=== PATIENT | female | born 1985 | race Caucasian/White ===

== ENCOUNTER 2016-09-25 06:19 | Emergency (ER) | payer OTHER ==
[~2016-09-25] VITALS: Ht 154.9 cm; Wt 99.8 kg
[2016-09-25 06:19] VITALS: BP 124/76
[~2016-09-25 06:19] MED LIST: AMOXIL500 M1 PO; AMOXIL500 MG PO; ANAPROX DS550 MG PO; ATIVAN1 MG PO; AUGMENTIN 875 M1 TAB PO; BACTROBAN OINT22 GM PO; CIPROFLOXACIN500 MG PO; CLARITIN10 MG PO; CORT DOME 0.5%30 GM PO; FLONASE0.05 MG/AC NS; IBUPROFEN 30 M800 MG PO; KEFLEX500 MG PO; KWELL TP; LAMICTAL1 TAB PO; LAMICTAL200 MG PO; MACRODANTIN100 MG PO; MOTRIN800 MG PO; NEURONTIN300 MG PO; SEPTRA DS 800 M1 TAB PO; SUDAFED60 M1 PO; TRAMADOL HCL50 MG PO; ULTRAM50 MG PO; VIBRAMYCIN100 MG PO; VICODIN ES 7501 TAB PO; WYMOX500 MG PO; ZANTAC150 MG PO; ZOFRAN4 MG PO; ZYRTEC10 M2 PO; Zofran4 MG PO
[2016-09-25] MEDS ORDERED: KLONOPIN1 M1 PO (06:30)
[2016-09-25] MEDS ORDERED: EFFEXOR XR75 MG PO (06:30)
[2016-09-25] MEDS ORDERED: NEURONTIN600 MG PO (06:31)
== END 2016-09-25 09:21 | disposition home or self-care (01) ==
LOC: ED 06:19
DX: S70.12XA Contusion of left thigh, initial encounter (principal); S70.11XA Contusion of right thigh, initial encounter; R51 Headache; M54.2 Cervicalgia; J34.89 Other specified disorders of nose and nasal sinuses; M79.644 Pain in right finger(s); F17.200 Nicotine dependence, unspecified, uncomplicated; Z91.040 Latex allergy status; Z79.899 Other long term (current) drug therapy; Y04.8XXA Assault by other bodily force, initial encounter; Y93.89 Activity, other specified; Y92.89 Other specified places as the place of occurrence of the external cause; Y99.9 Unspecified external cause status

== ENCOUNTER 2018-03-22 16:15 | Emergency (ER) | payer SELFPAY ==
[~2018-03-22] VITALS: Wt 81.6 kg
[~2018-03-22 16:15] MED LIST changes: +EFFEXOR XR75 MG PO; +KLONOPIN1 M1 PO; +NEURONTIN600 MG PO
[2018-03-22 16:18] VITALS: BP 123/71
[2018-03-22 16:54] LABS: BILIRUBIN NEGATIVE (NEGATIVE); BLOOD NEGATIVE (NEGATIVE); CLARITY CLOUDY (CLEAR); COLOR YELLOW (YELLOW); GLUCOSE 1+ (NEGATIVE); KETONE NEGATIVE (NEGATIVE); LEUKO ESTERASE NEGATIVE (NEGATIVE); NITRITE NEGATIVE (NEGATIVE); PH 5.5 (5.0-9.0); SPECIFIC GRAVITY >= 1.030 (1.005-1.030); UROBILINOGEN 0.2 E.U./dl (0.2-1.0)
[2018-03-22 17:18] LABS: BACTERIA 1+; EPITHELIAL CELLS TNTC; RBC 0-2 rbc/hpf (0-2); WBC 0-2 wbc/hpf (0-5)
== END 2018-03-22 17:41 | disposition home or self-care (01) ==
LOC: ED 16:15
PROVIDERS: Physician Assistant
DX: Z20.2 Contact with and (suspected) exposure to infections with a predominantly sexual mode of transmission (principal); Z91.040 Latex allergy status; Z79.899 Other long term (current) drug therapy

== ENCOUNTER → 2018-07-09 | Outpatient (CLI) | payer OTHER | END | disposition home or self-care (01) | DX: Z34.91 Encounter for supervision of normal pregnancy, unspecified, first trimester (principal) ==

== ENCOUNTER → 2018-07-16 | Outpatient (CLI) | payer OTHER | END | disposition home or self-care (01) | LOC: US 07-08 10:00 | DX: Z34.91 Encounter for supervision of normal pregnancy, unspecified, first trimester (principal); Z3A.14 14 weeks gestation of pregnancy ==

== ENCOUNTER → 2019-02-09 | Outpatient (CLI) | payer OTHER | END | disposition home or self-care (01) | LOC: RAD 16:19 | DX: M25.552 Pain in left hip (principal); M25.551 Pain in right hip ==

== ENCOUNTER → 2020-07-25 | Outpatient (CLI) | payer OTHER | END | disposition home or self-care (01) | LOC: COVID19 15:32 | PROVIDERS: ATTEND Family Medicine | DX: Z20.822 Contact with and (suspected) exposure to COVID-19 (principal) ==

== ENCOUNTER 2020-09-02 15:50 | Emergency (ER) | payer OTHER ==
[~2020-09-02] VITALS: Ht 154.9 cm; Wt 99.8 kg
[2020-09-02 15:55] VITALS: BP 132/67
== END 2020-09-02 16:37 | disposition home or self-care (01) ==
LOC: ED 15:50
DX: M25.561 Pain in right knee (principal); M06.9 Rheumatoid arthritis, unspecified; E66.01 Morbid (severe) obesity due to excess calories; F32.9 Major depressive disorder, single episode, unspecified; K21.9 Gastro-esophageal reflux disease without esophagitis; Z91.040 Latex allergy status; Z79.899 Other long term (current) drug therapy; Z87.891 Personal history of nicotine dependence

== ENCOUNTER → 2020-09-25 | Outpatient (CLI) | payer OTHER | END | disposition home or self-care (01) | LOC: LAB 14:01 | PROVIDERS: ATTEND Family Medicine | DX: M06.9 Rheumatoid arthritis, unspecified (principal) ==

== ENCOUNTER → 2020-10-16 | Outpatient (CLI) | payer OTHER | END | disposition home or self-care (01) | LOC: ORTHO 00:45 | PROVIDERS: ATTEND Orthopaedic Surgery | DX: M25.562 Pain in left knee (principal) ==

== ENCOUNTER 2020-12-04 01:15 | Emergency (ER) | payer OTHER ==
[~2020-12-04] VITALS: Ht 162.5 cm; Wt 113.4 kg
[2020-12-04 01:31] VITALS: BP 144/70
== END 2020-12-04 04:04 | disposition home or self-care (01) ==
LOC: ED 01:15
DX: S80.02XA Contusion of left knee, initial encounter (principal); F10.10 Alcohol abuse, uncomplicated; R45.1 Restlessness and agitation; Z91.040 Latex allergy status; Z90.49 Acquired absence of other specified parts of digestive tract; W19.XXXA Unspecified fall, initial encounter; Y93.89 Activity, other specified; Y92.89 Other specified places as the place of occurrence of the external cause; Y99.8 Other external cause status

== ENCOUNTER 2020-12-04 17:46 | Emergency (ER) | payer OTHER ==
[~2020-12-04] VITALS: Ht 154.9 cm; Wt 106.1 kg
[2020-12-04 17:50] VITALS: BP 126/78
== END 2020-12-04 20:45 | disposition home or self-care (01) ==
LOC: ED 17:46
DX: M25.462 Effusion, left knee (principal); Z91.040 Latex allergy status; Z90.49 Acquired absence of other specified parts of digestive tract; X58.XXXA Exposure to other specified factors, initial encounter; Y93.89 Activity, other specified; Y92.89 Other specified places as the place of occurrence of the external cause; Y99.8 Other external cause status

== ENCOUNTER → 2020-12-13 | Outpatient (CLI) | payer OTHER | END | disposition home or self-care (01) | LOC: US 14:25 | PROVIDERS: ATTEND Orthopaedic Surgery | DX: M71.22 Synovial cyst of popliteal space [Baker], left knee (principal); M79.89 Other specified soft tissue disorders ==

== ENCOUNTER → 2021-04-12 | Outpatient (CLI) | payer OTHER | END | disposition home or self-care (01) | LOC: COVID19 16:01 | PROVIDERS: ATTEND Internal Medicine | DX: Z11.52 Encounter for screening for COVID-19 (principal) ==

== ENCOUNTER → 2021-07-12 | Outpatient (CLI) | payer OTHER ==
[2021-07-12 19:56] LABS: BASO % 0.4 % (0.0-1.0); EOS # 0.3 10*3/uL (0.0-0.4); EOS % 2.8 % (1.0-4.0); HEMATOCRIT 40.1 % (37.0-47.0); LYMPH % 32.1 % (27.0-41.0); MEAN CORPUSCULAR HGB 31.5 pg (27.0-31.0); MEAN CORPUSCULAR HGB CONC 33.2 g/dl (33.0-37.0); MEAN PLATELET VOLUME 9.1 fl (9.6-12.3); MONO # 0.8 10*3/uL (0.1-1.0); MONO % 8.8 % (3.0-9.0); NEUT # 5.1 10*3/uL (2.3-7.9); NEUT % 55.6 % (47.0-73.0); PLATELET COUNT AUTOMATED 303 10*3/uL (130-400); RED BLOOD COUNT 4.22 10*6/uL (4.10-5.10); RED CELL DISTRI WIDTH 11.9 % (0-14.5); WHITE BLOOD COUNT 9.2 10*3/uL (4.8-10.8)
[2021-07-16 18:06] LABS: ALTERNARIA ALTERNATA, IGE <0.10 kU/L (Class 0); ASPERGILLUS FUMIGATU, IGE <0.10 kU/L (Class 0); CLADOSPORIUM HERBARU, IGE <0.10 kU/L (Class 0); CORN, IGE <0.10 kU/L (Class 0); MILK (COW), IGE 0.16 kU/L (Class 0/I); PEANUT, IGE <0.10 kU/L (Class 0); PENICILLIUM CHRYSOGENUM, IGE <0.10 kU/L (Class 0); SETOMELANOMMA ROSTRAT <0.10 kU/L (Class 0); SOYBEAN, IGE <0.10 kU/L (Class 0); STEMPHYLIUM HERBARUM <0.10 kU/L (Class 0); WHEAT, IGE <0.10 kU/L (Class 0)
[2021-07-16 22:05] LABS: ALTERNARIA ALTERNATA, IGE <0.10 kU/L (Class 0); AMERICAN ELM, IGE <0.10 kU/L (Class 0); ASPERGILLUS FUMIGATU, IGE <0.10 kU/L (Class 0); BERMUDA GRASS, IGE <0.10 kU/L (Class 0); BIRCH, COMMON SILVER IGE <0.10 kU/L (Class 0); CLADOSPORIUM HERBARU, IGE <0.10 kU/L (Class 0); D FARINAE MITE 0.23 kU/L (Class 0/I); D PTERONYSSINUS 0.34 kU/L (Class I); DOG DANDER, IGE <0.10 kU/L (Class 0); IMMUNOGLOBULIN IgE 310 IU/mL (6-495); MAPLE LEAF SYCAMORE, IGE <0.10 kU/L (Class 0); MAPLE/BOX ELDER, IGE <0.10 kU/L (Class 0); MOUSE URINE IGE <0.10 kU/L (Class 0); PENICILLIUM CHRYSOGENUM, IGE <0.10 kU/L (Class 0); ROUGH PIGWEED, IGE <0.10 kU/L (Class 0); SHEEP SORREL (DOCK), IGE <0.10 kU/L (Class 0); SHORT RAGWEED, IGE <0.10 kU/L (Class 0); TIMOTHY, IGE <0.10 kU/L (Class 0); WALNUT TREE, IGE <0.10 kU/L (Class 0); WHITE ASH, IGE <0.10 kU/L (Class 0); WHITE MULBERRY, IGE <0.10 kU/L (Class 0); WHITE OAK, IGE <0.10 kU/L (Class 0)
== END | disposition home or self-care (01) ==
LOC: LAB 19:18
PROVIDERS: ATTEND Pediatrics
DX: T78.49XA Other allergy, initial encounter (principal); D64.9 Anemia, unspecified; E56.9 Vitamin deficiency, unspecified; X58.XXXA Exposure to other specified factors, initial encounter

== ENCOUNTER → 2021-07-17 | Outpatient (CLI) | payer OTHER | END | disposition home or self-care (01) | LOC: COVID19 17:35 | PROVIDERS: ATTEND Podiatrist Foot & Ankle Surgery | DX: Z20.822 Contact with and (suspected) exposure to COVID-19 (principal) ==

== ENCOUNTER 2021-10-23 17:08 | Emergency (ER) | payer OTHER ==
[~2021-10-23] VITALS: Ht 154.9 cm; Wt 99.8 kg
[2021-10-23 17:38] VITALS: BP 152/115
[2021-10-23 19:11] LABS: BASO % 0.6 % (0.0-1.0); EOS # 0.3 10*3/uL (0.0-0.4); EOS % 4.8 % (1.0-4.0); HEMATOCRIT 41.4 % (37.0-47.0); LYMPH # 1.5 10*3/uL (1.3-4.4); LYMPH % 29.5 % (27.0-41.0); MEAN CELL VOLUME 92.4 fl (81.0-99.0); MEAN CORPUSCULAR HGB 31.7 pg (27.0-31.0); MEAN CORPUSCULAR HGB CONC 34.3 g/dl (33.0-37.0); MEAN PLATELET VOLUME 9.2 fl (9.6-12.3); MONO # 0.5 10*3/uL (0.1-1.0); MONO % 9.5 % (3.0-9.0); NEUT # 2.9 10*3/uL (2.3-7.9); NEUT % 55.4 % (47.0-73.0); PLATELET COUNT AUTOMATED 271 10*3/uL (130-400); RED BLOOD COUNT 4.48 10*6/uL (4.10-5.10); RED CELL DISTRI WIDTH 11.9 % (0-14.5); WHITE BLOOD COUNT 5.2 10*3/uL (4.8-10.8)
[2021-10-23 19:26] LABS: ALKALINE PHOSPHATASE 65 U/L (45-117); BUN 7 mg/dl (7-24); CHLORIDE 105 mmol/L (98-107); CREATININE 0.79 mg/dL (0.55-1.02); POTASSIUM 3.5 mmol/L (3.5-5.1); SGOT/AST 24 IU/L (3-35); SGPT/ALT 34 U/L (12-78); SODIUM 137 mmol/L (136-145); TOTAL PROTEIN 7.6 gm/dL (6.4-8.2)
[2021-10-23] MEDS ORDERED: PREDNISONE10 M1 PO (21:10)
== END 2021-10-23 21:24 | disposition home or self-care (01) ==
LOC: ED 17:08
PROVIDERS: Family Medicine
DX: J06.9 Acute upper respiratory infection, unspecified (principal); J98.01 Acute bronchospasm; Z91.040 Latex allergy status

== ENCOUNTER → 2021-10-31 | Outpatient (CLI) | payer OTHER ==
[~2021-10-31] MED LIST changes: +PREDNISONE10 M1 PO
== END | disposition home or self-care (01) ==
LOC: LAB 14:52
PROVIDERS: ATTEND Pediatrics
DX: T59.7X1A Toxic effect of carbon dioxide, accidental (unintentional), initial encounter (principal); Y92.89 Other specified places as the place of occurrence of the external cause

== ENCOUNTER 2022-02-15 11:43 | Emergency (ER) | payer OTHER ==
[~2022-02-15] VITALS: Wt 90.7 kg
[2022-02-15 11:56] VITALS: BP 125/57
[2022-02-15 12:23] LABS: BASO % 0.5 % (0.0-1.0); EOS # 0.2 10*3/uL (0.0-0.4); LYMPH # 1.8 10*3/uL (1.3-4.4); LYMPH % 29.2 % (27.0-41.0); MEAN CELL VOLUME 94.1 fl (81.0-99.0); MEAN CORPUSCULAR HGB 32.1 pg (27.0-31.0); MEAN CORPUSCULAR HGB CONC 34.1 g/dl (33.0-37.0); MEAN PLATELET VOLUME 9.2 fl (9.6-12.3); MONO # 0.5 10*3/uL (0.1-1.0); MONO % 8.2 % (3.0-9.0); NEUT # 3.7 10*3/uL (2.3-7.9); NEUT % 58.8 % (47.0-73.0); PLATELET COUNT AUTOMATED 303 10*3/uL (130-400); RED BLOOD COUNT 3.93 10*6/uL (4.10-5.10); WHITE BLOOD COUNT 6.2 10*3/uL (4.8-10.8)
[2022-02-15 12:37] LABS: BUN 11 mg/dl (7-24); CHLORIDE 111 mmol/L (98-107); CREATININE 0.68 mg/dL (0.55-1.02); POTASSIUM 3.8 mmol/L (3.5-5.1); SODIUM 142 mmol/L (136-145)
== END 2022-02-15 13:24 | disposition home or self-care (01) ==
LOC: ED 11:43
PROVIDERS: Emergency Medicine
DX: G43.909 Migraine, unspecified, not intractable, without status migrainosus (principal); Z91.040 Latex allergy status; Z90.49 Acquired absence of other specified parts of digestive tract

== ENCOUNTER → 2022-02-27 | Outpatient (CLI) | payer OTHER ==
[~2022-02-27] MED LIST changes: +CEFUROXIME AXE500 MG PO; +NAPROSYN500 MG PO; +ONDANSETRON4 MG SL
== END | disposition home or self-care (01) ==
LOC: RAD 14:47 → EDSTATUS 14:49 → RAD 14:49
PROVIDERS: ATTEND Chiropractor
DX: M47.815 Spondylosis without myelopathy or radiculopathy, thoracolumbar region (principal)

== ENCOUNTER 2022-02-28 16:16 | Emergency (ER) | payer OTHER ==
[~2022-02-28] VITALS: Wt 100.7 kg
[~2022-02-28 16:16] MED LIST changes: -CEFUROXIME AXE500 MG PO; -NAPROSYN500 MG PO; -ONDANSETRON4 MG SL
[2022-02-28 16:23] VITALS: BP 154/61
[2022-02-28 20:22] LABS: MEAN CORPUSCULAR HGB 32.4 pg (27.0-31.0); MEAN CORPUSCULAR HGB CONC 33.7 g/dl (33.0-37.0); PLATELET COUNT AUTOMATED 405 10*3/uL (130-400); RED BLOOD COUNT 4.48 10*6/uL (4.10-5.10); RED CELL DISTRI WIDTH 12.2 % (0-14.5); WHITE BLOOD COUNT 14.8 10*3/uL (4.8-10.8)
[2022-02-28 20:38] LABS: ALKALINE PHOSPHATASE 58 U/L (45-117); BUN 15 mg/dl (7-24); CHLORIDE 103 mmol/L (98-107); CREATININE 0.95 mg/dL (0.55-1.02); POTASSIUM 3.8 mmol/L (3.5-5.1); SGOT/AST 9 IU/L (3-35); SGPT/ALT 20 U/L (12-78); SODIUM 137 mmol/L (136-145); TOTAL PROTEIN 7.6 gm/dL (6.4-8.2)
[2022-02-28 21:10] LABS: MANUAL DIFF REFLEX YES
[2022-02-28 21:13] LABS: ATYPICAL LYMPHS 3 % (0-0); PLATELET SUFFICIENCY HIGH (NORMAL); TOTAL CELLS COUNTED 100 #CELLS
[2022-02-28] MEDS ORDERED: ONDANSETRON4 MG SL (21:53)
[2022-02-28] MEDS ORDERED: NAPROSYN500 MG PO (21:53)
[2022-02-28] MEDS ORDERED: CEFUROXIME AXE500 MG PO (21:53)
== END 2022-02-28 22:10 | disposition home or self-care (01) ==
LOC: ED 16:16
PROVIDERS: Nurse Practitioner Family
DX: G43.909 Migraine, unspecified, not intractable, without status migrainosus (principal); R59.0 Localized enlarged lymph nodes; Z91.040 Latex allergy status; Z88.8 Allergy status to other drugs, medicaments and biological substances; Z90.49 Acquired absence of other specified parts of digestive tract

== ENCOUNTER 2022-04-17 09:30 | Emergency (ER) | payer OTHER ==
[~2022-04-17] VITALS: Wt 100.7 kg
[~2022-04-17 09:30] MED LIST changes: +CEFUROXIME AXE500 MG PO; +NAPROSYN500 MG PO; +ONDANSETRON4 MG SL
[2022-04-17 09:39] VITALS: BP 120/68
[2022-04-17] MEDS ORDERED: ATIVAN1 MG PO (09:41)
[2022-04-17] MEDS ORDERED: PREDNISONE50 MG PO (12:33)
[2022-04-17] MEDS ORDERED: VIBRA-TAB100 MG PO (12:33)
== END 2022-04-17 12:52 | disposition home or self-care (01) ==
LOC: ED 09:30
DX: J06.9 Acute upper respiratory infection, unspecified (principal); Z20.822 Contact with and (suspected) exposure to COVID-19; Z91.040 Latex allergy status; Z88.8 Allergy status to other drugs, medicaments and biological substances; Z79.899 Other long term (current) drug therapy; Z90.49 Acquired absence of other specified parts of digestive tract

== ENCOUNTER 2022-07-25 16:45 | Emergency (ER) | payer OTHER ==
[~2022-07-25] VITALS: Wt 98.9 kg
[~2022-07-25 16:45] MED LIST changes: +PREDNISONE50 MG PO; +VIBRA-TAB100 MG PO
[2022-07-25 17:01] VITALS: BP 113/58
== END 2022-07-25 18:14 | disposition home or self-care (01) ==
LOC: ED 16:45
DX: B34.9 Viral infection, unspecified (principal); Z20.822 Contact with and (suspected) exposure to COVID-19; Z91.040 Latex allergy status; Z88.8 Allergy status to other drugs, medicaments and biological substances; Z90.49 Acquired absence of other specified parts of digestive tract

== ENCOUNTER → 2022-08-08 | Outpatient (CLI) | payer OTHER | END | disposition home or self-care (01) | LOC: LAB 09:48 | PROVIDERS: ATTEND Registered Nurse Psychiatric/Mental Health | DX: Z79.899 Other long term (current) drug therapy (principal) ==

== ENCOUNTER 2022-09-06 16:50 | Emergency (ER) | payer OTHER ==
[~2022-09-06] VITALS: Ht 154.9 cm; Wt 95.3 kg
[2022-09-06 17:12] VITALS: BP 132/80
[2022-09-06] MEDS ORDERED: TOBRADEX 0.1%-0.5 ML OPH (18:13)
[2022-09-06] MEDS ORDERED: IBUPROFEN600 MG PO (18:13)
== END 2022-09-06 18:31 | disposition home or self-care (01) ==
LOC: ED 16:50
DX: S05.01XA Injury of conjunctiva and corneal abrasion without foreign body, right eye, initial encounter (principal); Z91.040 Latex allergy status; Z88.8 Allergy status to other drugs, medicaments and biological substances; Z90.49 Acquired absence of other specified parts of digestive tract; W45.0XXA Nail entering through skin, initial encounter; Y93.89 Activity, other specified; Y92.89 Other specified places as the place of occurrence of the external cause; Y99.8 Other external cause status

== ENCOUNTER → 2022-09-16 | Outpatient (CLI) | payer OTHER ==
[~2022-09-16] MED LIST changes: +IBUPROFEN600 MG PO; +TOBRADEX 0.1%-0.5 ML OPH
== END | disposition home or self-care (01) ==
LOC: US 00:31
PROVIDERS: ATTEND Nurse Practitioner Women's Health
DX: Z72.51 High risk heterosexual behavior (principal); N89.8 Other specified noninflammatory disorders of vagina

== ENCOUNTER → 2023-03-03 | Outpatient (CLI) | payer OTHER | END | disposition home or self-care (01) | LOC: RAD 09:47 | PROVIDERS: ATTEND Internal Medicine | DX: M16.12 Unilateral primary osteoarthritis, left hip (principal); G89.29 Other chronic pain; M25.552 Pain in left hip ==

== ENCOUNTER → 2023-05-13 | Outpatient (CLI) | payer OTHER | END | disposition home or self-care (01) | LOC: RAD 01:37 | PROVIDERS: ATTEND Internal Medicine | DX: R05.9 Cough, unspecified (principal) ==

== ENCOUNTER → 2023-06-12 | Outpatient (CLI) | payer OTHER | END | disposition home or self-care (01) | LOC: CP 05-27 13:30 → CT 05-27 15:00 → CP 06-10 10:30 → CT 09:47 | PROVIDERS: ATTEND Internal Medicine | DX: R05.8 Other specified cough (principal) ==

== ENCOUNTER 2023-09-10 10:40 | Emergency (ER) | payer OTHER ==
[~2023-09-10] VITALS: Ht 154.9 cm; Wt 90.7 kg
[2023-09-10 10:48] VITALS: BP 134/84
[2023-09-10] MEDS ORDERED: SODIUM CHLORIDE 0.9% 1,000 ML IV ONE (11:10)
[2023-09-10] MEDS ORDERED: IOHEXOL 300 MG/ML 100 ML VIAL IV ONE (11:15)
[2023-09-10 11:36] LABS: BILIRUBIN Negative (Negative); BLOOD Negative (Negative); CLARITY Clear (Clear); COLOR Yellow (Yellow); GLUCOSE Negative (Negative); KETONE Negative (Negative); LEUKO ESTERASE Negative (Negative); NITRITE Negative (Negative); SPECIFIC GRAVITY <= 1.005 (1.001-1.030); UROBILINOGEN 0.2 E.U./dl (0.0-1.0)
[2023-09-10 11:54] LABS: WBC 0-2 wbc/hpf (0-5)
[2023-09-10 11:55] LABS: EPITHELIAL CELLS 0-2
[2023-09-10 11:57] LABS: BASO % 0.2 % (0.0-1.0); EOS # 0.2 10*3/uL (0.0-0.4); EOS % 4.1 % (1.0-4.0); HEMATOCRIT 38.3 % (37.0-47.0); LYMPH % 39.7 % (27.0-41.0); MEAN CELL VOLUME 96.2 fl (81.0-99.0); MEAN CORPUSCULAR HGB 31.2 pg (27.0-31.0); MEAN CORPUSCULAR HGB CONC 32.4 g/dl (33.0-37.0); MONO # 0.6 10*3/uL (0.1-1.0); MONO % 12.4 % (3.0-9.0); NEUT # 2.1 10*3/uL (2.3-7.9); NEUT % 43.6 % (47.0-73.0); PLATELET COUNT AUTOMATED 247 10*3/uL (130-400); RED BLOOD COUNT 3.98 10*6/uL (4.10-5.10); RED CELL DISTRI WIDTH 11.9 % (0-14.5); WHITE BLOOD COUNT 4.9 10*3/uL (4.8-10.8)
[2023-09-10 12:13] LABS: ALKALINE PHOSPHATASE 60 U/L (46-116); BUN 11 mg/dl (9-23); CHLORIDE 110 mmol/L (98-107); LIPASE 43 U/L (12-53); POTASSIUM 3.6 mmol/L (3.4-5.1); SGPT/ALT 7 U/L (5-49); TOTAL PROTEIN 6.6 gm/dL (6.0-8.0)
== END 2023-09-10 13:54 | disposition home or self-care (01) ==
LOC: ED 10:40
PROVIDERS: Physician Assistant Medical
DX: K52.9 Noninfective gastroenteritis and colitis, unspecified (principal); F32.A Depression, unspecified; K21.9 Gastro-esophageal reflux disease without esophagitis; M19.90 Unspecified osteoarthritis, unspecified site; Z91.040 Latex allergy status; Z88.8 Allergy status to other drugs, medicaments and biological substances; Z90.49 Acquired absence of other specified parts of digestive tract

== ENCOUNTER → 2023-09-24 | Outpatient (CLI) | payer OTHER ==
[~2023-09-24] MED LIST changes: +Gadoxetate Disodium 10 ML SOL IV ONE; +SODIUM CHLORIDE 0.9% 50 ML IV ONE
== END | disposition home or self-care (01) ==
LOC: MRI 02:01
PROVIDERS: ATTEND Internal Medicine
DX: K76.9 Liver disease, unspecified (principal)

== ENCOUNTER 2024-05-06 22:08 | Emergency (ER) | payer OTHER ==
[~2024-05-06] VITALS: Ht 154.9 cm; Wt 95.3 kg
[~2024-05-06 22:08] MED LIST changes: -Gadoxetate Disodium 10 ML SOL IV ONE; -SODIUM CHLORIDE 0.9% 50 ML IV ONE
[2024-05-06 22:27] VITALS: BP 106/52
[2024-05-06] MEDS ORDERED: ABILIFY2 MG PO (22:27)
[2024-05-06] MEDS ORDERED: TRAMADOL HCL50 MG PO (22:28)
[2024-05-06] MEDS ORDERED: TOPAMAX100 M1 PO (22:28)
[2024-05-06] MEDS ORDERED: NEURONTIN300 MG PO (22:28)
[2024-05-06] MEDS ORDERED: ACETAMINOPHEN 325 MG TAB PO ONE (22:35)
== END 2024-05-06 23:08 | disposition home or self-care (01) ==
LOC: ED 22:08
DX: S93.401A Sprain of unspecified ligament of right ankle, initial encounter (principal); F32.A Depression, unspecified; K21.9 Gastro-esophageal reflux disease without esophagitis; Z91.040 Latex allergy status; Z88.8 Allergy status to other drugs, medicaments and biological substances; Z90.49 Acquired absence of other specified parts of digestive tract; X50.1XXA Overexertion from prolonged static or awkward postures, initial encounter; Y93.01 Activity, walking, marching and hiking; Y92.009 Unspecified place in unspecified non-institutional (private) residence as the place of occurrence of the external cause; Y99.8 Other external cause status

== ENCOUNTER → 2024-08-09 | Outpatient (CLI) | payer OTHER ==
[~2024-08-09] MED LIST changes: +ABILIFY2 MG PO; +TOPAMAX100 M1 PO
[2024-08-09 09:55] LABS: FREE T4 1.09 ng/dl (0.89-1.76)
[2024-08-10 12:27] LABS: AFP TUMOR MARKER <1.8 ng/mL (0.0-6.4)
[2024-08-10 15:06] LABS: ANTI-SMOOTH MUSCLE ANTIBODY 9 Units (0-19)
[2024-08-10 16:07] LABS: t-TRANSGLUTAMINASE (tTG) IGA <2 U/mL (0-3); t-TRANSGLUTAMINASE (tTG) IgG 5 U/mL (0-5)
== END | disposition home or self-care (01) ==
LOC: LAB 08:35
PROVIDERS: ATTEND Nurse Practitioner Family
DX: R10.9 Unspecified abdominal pain (principal); R53.83 Other fatigue; R11.0 Nausea; K76.9 Liver disease, unspecified

== ENCOUNTER 2024-09-21 08:59 | Emergency (ER) | payer OTHER ==
[~2024-09-21] VITALS: Ht 154.9 cm; Wt 96.2 kg
[2024-09-21 09:10] VITALS: BP 126/73
[2024-09-21] MEDS ORDERED: MELATONIN1 MG PO (09:12)
[2024-09-21] MEDS ORDERED: KLONOPIN1 M1 PO (09:12)
[2024-09-21] MEDS ORDERED: Albuterol Sulfate 2.5 MG/3 ML VIAL NEB ONE (09:30)
[2024-09-21] MEDS ORDERED: predniSONE 20 MG TAB PO ONE (09:30)
[2024-09-21] MEDS ORDERED: Albuterol Sulf/Ipratropium 3 ML VIAL NEB ONE (09:30)
[2024-09-21] MEDS ORDERED: INHAL AID 1 KIT DEVICE DEVI SCH (10:50)
[2024-09-21] MEDS ORDERED: PREDNISONE20 M1 PO (10:51)
[2024-09-21] MEDS ORDERED: VENT7GM INH (10:51)
== END 2024-09-21 10:52 | disposition home or self-care (01) ==
LOC: ED 08:59
DX: J45.901 Unspecified asthma with (acute) exacerbation (principal); J98.8 Other specified respiratory disorders; Z20.822 Contact with and (suspected) exposure to COVID-19; F32.A Depression, unspecified; K21.9 Gastro-esophageal reflux disease without esophagitis; M19.90 Unspecified osteoarthritis, unspecified site; Z91.040 Latex allergy status; Z88.8 Allergy status to other drugs, medicaments and biological substances; Z90.49 Acquired absence of other specified parts of digestive tract

== ENCOUNTER → 2024-11-11 | Outpatient (CLI) | payer OTHER ==
[~2024-11-11] MED LIST changes: +MELATONIN1 MG PO; +PREDNISONE20 M1 PO; +VENT7GM INH
== END | disposition home or self-care (01) ==
LOC: US 11-04 10:30
PROVIDERS: ATTEND Nurse Practitioner Women's Health
DX: N88.8 Other specified noninflammatory disorders of cervix uteri (principal); R10.2 Pelvic and perineal pain; N94.0 Mittelschmerz

== ENCOUNTER 2025-01-18 00:46 | Emergency (ER) | payer OTHER ==
[2025-01-18 00:51] VITALS: BP 122/74
[2025-01-18] MEDS ORDERED: VIBRAMYCIN100 MG PO (01:18)
[2025-01-18] MEDS ORDERED: Acetaminophen/Hydrocodone Bi 3 TAB PACK PO PRN (01:20)
== END 2025-01-18 01:39 | disposition home or self-care (01) ==
LOC: ED 00:46
DX: S80.862A Insect bite (nonvenomous), left lower leg, initial encounter (principal); L03.116 Cellulitis of left lower limb; Z91.040 Latex allergy status; Z88.8 Allergy status to other drugs, medicaments and biological substances; Z79.899 Other long term (current) drug therapy; W57.XXXA Bitten or stung by nonvenomous insect and other nonvenomous arthropods, initial encounter; Y93.89 Activity, other specified; Y92.89 Other specified places as the place of occurrence of the external cause; Y99.8 Other external cause status

== ENCOUNTER → 2025-05-11 | Outpatient (CLI) | payer OTHER ==
[2025-05-11 13:35] LABS: T3 UPTAKE 26.9 % (22.4-36.7); THYROXINE (T4) TOTAL 4.9 ug/dl (4.5-10.9)
[2025-05-11 13:36] LABS: VITAMIN D, 25-HYDROXY 34.3 ng/mL (30-100)
== END | disposition home or self-care (01) ==
LOC: LAB 11:48
PROVIDERS: ATTEND Social Worker Clinical
DX: Z51.81 Encounter for therapeutic drug level monitoring (principal); Z79.899 Other long term (current) drug therapy